=== PATIENT | male | born 1945 | race Two or more races ===

== ENCOUNTER 2017-02-19 15:27 | Outpatient (CLI) | payer MEDICARE, OTHER ==
[~2017-02-19 15:27] MED LIST: AMIODARONE HCL400 M1 ORAL; APIDRA SOL100 UNIT/1 SQ; ASPIRIN EC81 MG ORAL; EDARBYCLOR 40-1 EAC1 ORAL; JANUMET XR 50-1 EAC1 ORAL; STARLIX120 MG ORAL; TENORMIN25 MG ORAL; XARELTO10 MG ORAL
--- NOTE | 2017-02-19 16:26 | Diagnostic Imaging Report ---
Indications: Cough, TB screening Technique: Upright PA chest Findings: Comparison: None Small circumscribed, dense nodule overlies the left hilar region. Thoracic aorta mildly calcified and elongated. Heart size, pulmonary vasculature within normal limits. Lungs and pleura otherwise clear. Osteophytes in lower cervical, mid to lower thoracic spine. IMPRESSION: Questionable calcified nodule left hilum. Granuloma not excludable. Consider thoracic CT scan for further evaluation as clinically indicated. Aortosclerosis and probable mild chronic hypertensive change Degenerative spondylosis
== END 2017-02-19 16:57 | disposition home or self-care (01) ==
LOC: RAD 15:27
DX: Z11.1 Encounter for screening for respiratory tuberculosis (principal); R05 Cough; M47.9 Spondylosis, unspecified; I70.0 Atherosclerosis of aorta
CPT/HCPCS: 71010